=== PATIENT | male | born 1990 ===

== ENCOUNTER 2021-08-21 13:09 | Emergency (ER) | payer OTHER ==
[2021-08-21 13:23] VITALS: BP 125/86; PULSE 79; TEMP 98.2; BMI 31.5
[2021-08-21] MEDS ORDERED: ACETAMINOPHEN 325 MG TABLET (FP) PO ONE (13:23)
[2021-08-21] MEDS ORDERED: ACETAMINOPHEN 325 MG TABLET (FP) ONE (13:25)
== END 2021-08-21 13:42 | disposition home or self-care (01) ==
LOC: FER 13:09
DX: S80.02XA Contusion of left knee, initial encounter (principal); W22.8XXA Striking against or struck by other objects, initial encounter; Y35.891A Legal intervention involving other specified means, law enforcement official injured, initial encounter
CPT/HCPCS: 99283-25